=== PATIENT | male | born 1985 ===

== ENCOUNTER 2017-05-26 21:08 | Emergency (ER) | payer SELFPAY ==
[2017-05-26 21:17] VITALS: TEMP 97.7; O2SAT 98
[2017-05-26 22:01] LABS: BASO % 0.7 % (0.0-2.0); EOS # 0.1 K/uL (0.0-0.7); EOS % 1.1 % (0.0-4.0); HEMOGLOBIN 13.8 g/dL (12.0-18.0); LYMPH % 27.4 % (20.0-40.0); MEAN CELL VOLUME 86.4 fL (80.0-94.0); MEAN CORPUSCULAR HGB CONC 33.6 g/dL (33.0-37.0); MEAN PLATELET VOLUME 7.4 fL (7.2-11.7); MONO # 0.8 K/uL (0.0-0.8); MONO % 10.8 % (0.0-10.0); NEUT # 4.3 K/uL (1.8-7.0); RBC 4.75 Mil/uL (4.40-5.90); RED CELL DISTRIBUTION WIDTH 13.4 % (11.5-14.5); WHITE BLOOD COUNT 7.2 K/uL (4.8-10.8)
[2017-05-26 22:09] LABS: ALBUMIN 3.8 g/dL (3.5-5.0)
[2017-05-26 22:11] LABS: GFR AFRICAN-AMERICAN > 60; GFR NON-AFRICAN AMERICAN > 60
[2017-05-26 22:12] LABS: ALB/GLOB RATIO 1.2 (1.0-2.1); ALT/SGPT 63 U/L (21-72); AST/SGOT 52 U/L (17-59); BLOOD UREA NITROGEN 12 mg/dL (9-20)
[2017-05-26 22:13] LABS: CALCIUM 7.8 mg/dl (8.6-10.4)
[2017-05-26 22:21] LABS: CK-MB 2.68 ng/mL (0.0-3.38)
--- NOTE | 2017-05-26 22:30 | C.PDOC ---
History Of Present Illness 32 year old male presents to the ED with complaints of generalized weakness beginning today. Patient states he has recently become homeless, he has been sleeping in his car and it has been very hot. He notes he has been drinking lots of fluids but still feels weak. Patient denies any SOB, chest pain, palpitations, fever. PMHx of hypothyroidism, compliant with Levothyroxine. Time Seen by Provider: 05/26/17 21:26 Chief Complaint (Nursing): Weakness/Neurological Deficit History Per: Patient History/Exam Limitations: no limitations Onset/Duration Of Symptoms: Hrs Current Symptoms Are (Timing): Still Present Fall Associated With With Symptoms: No Severity: Mild Past Medical History Reviewed: Historical Data, Nursing Documentation, Vital Signs Vital Signs: Last Vital Signs Temp 97.7 F 05/27/17 00:34 Pulse 92 H 05/27/17 00:34 Resp 16 05/27/17 00:34 BP 140/95 H 05/27/17 00:34 Pulse Ox 98 05/27/17 00:34 - Medical History PMH: Hypothyroidism Family History: States: No Known Family Hx - Social History Hx Alcohol Use: Yes Hx Substance Use: No Review Of Systems Except As Marked, All Systems Reviewed And Found Negative. Constitutional: Positive for: Weakness (generalized weakness ). Negative for: Fever, Chills Cardiovascular: Negative for: Chest Pain, Palpitations Respiratory: Negative for: Cough, Shortness of Breath Gastrointestinal: Negative for: Nausea, Vomiting, Abdominal Pain, Diarrhea Skin: Negative for: Rash Neurological: Negative for: Weakness, Numbness, Confusion, Altered Mental Status , Dizziness Physical Exam - Physical Exam Appears: Well, Non-toxic, No Acute Distress, Other ( appears anxious ) Skin: Warm, Dry Head: Normacephalic Eye(s): bilateral: Normal Inspection, PERRL, EOMI Oral Mucosa: Moist Cardiovascular: Rhythm Regular Respiratory: No Rales, No Rhonchi, No Wheezing Gastrointestinal/Abdominal: Normal Exam, Bowel Sounds, Soft, No Tenderness Extremity: Normal ROM, No Pedal Edema, No Calf Tenderness Neurological/Psych: Oriented x3, Normal Speech, Normal Cognition Gait: Steady ED Course And Treatment - Laboratory Results Result Diagrams: 05/26/17 21:58 05/26/17 21:58 O2 Sat by Pulse Oximetry: 98 (room air ) Pulse Ox Interpretation: Normal Progress Note: Blood work, UA, UDS ordered and reviewed. Patient given IV NS bolus. Reevaluation Time: 00:05 Reassessment Condition: Improved (Patient reassessed, states he is feeling better. TSH noted to be elevated, patient given higher Lthhyroxine dose in ED and given Rx for same. He was instructed to drink plenty of fluids, and follow up with PMD/clinic in 1-2 days. Patient understands he should return to Ed if symptoms worsen.) Disposition Counseled Patient/Family Regarding: Studies Performed, Diagnosis, Need For Followup, Rx Given - Disposition Referrals: [facility] [Outside] Disposition: HOME/ ROUTINE Disposition Time: 00:10 Condition: STABLE Additional Instructions: FOLLOW UP WITH YOUR DOCTOR/CLINIC IN 1-2 DAYS USE MEDICATION DIRECTED RETURN TO ER IF SYMPTOMS WORSEN Prescriptions: Levothyroxine Sodium [Levo-T] 300 mcg PO DAILY #30 tablet Instructions: Hypothyroidism (ED) Print Language: GREENLANDIC - POA Present On Arrival: None - Clinical Impression Clinical Impression: Hypothyroidism - Scribe Statement The provider has reviewed the documentation as recorded by the Scribkamryn Morse All medical record entries made by the Jesusita were at my direction and personally dictated by me. I have reviewed the chart and agree that the record accurately reflects my personal performance of the history, physical exam, medical decision making, and the department course for this patient. I have also personally directed, reviewed, and agree with the discharge instructions and disposition.
[2017-05-26 23:06] LABS: SQUAMOUS EPITHIAL < 1 /hpf (0-5); URINE BACTERIA RARE (<OCC); URINE BILIRUBIN NEGATIVE (NEGATIVE); URINE BLOOD NEGATIVE (NEGATIVE); URINE CLARITY Clear (Clear); URINE COLOR Yellow (YELLOW); URINE GLUCOSE (UA) NORMAL (Normal); URINE LEUKOCYTE ESTERASE NEG Leu/uL (Negative); URINE NITRATE NEGATIVE (NEGATIVE); URINE PROTEIN NEGATIVE (NEGATIVE)
[2017-05-26 23:47] LABS: BENZODIAZEPINES, UR NEGATIVE (NEGATIVE)
[2017-05-26 23:49] LABS: BARBITURATES, UR NEGATIVE (NEGATIVE)
[2017-05-26 23:52] LABS: OPIATES, UR NEGATIVE (NEGATIVE); PHENCYCLIDINE, UR NEGATIVE (NEGATIVE)
[2017-05-27] MEDS ORDERED: Levothyroxine 200 MCG TAB PO STA (00:11)
[2017-05-27 00:34] VITALS: BP 140/95; PULSE 92; RESP 16
== END 2017-05-27 00:34 | disposition home or self-care (01) ==
LOC: C.ER 21:08
DX: E03.9 Hypothyroidism, unspecified (principal)
CPT/HCPCS: 80053; 81001; 82553; 84443; 85025; 99284; G0480

== ENCOUNTER → 2017-06-22 17:23 | Emergency (ER) | payer SELFPAY | END | disposition left against medical advice (07) | LOC: C.ER 17:23 | DX: Z02.89 Encounter for other administrative examinations (principal) ==